=== PATIENT | female | born 1985 | race American Indian/Alaskan Native ===

== ENCOUNTER 2018-02-06 10:02 | Outpatient (CLI) | payer OTHER | END 2018-02-06 13:30 | disposition home or self-care (01) | LOC: LAB 10:02 → TRG 13:09 → LAB 13:30 | PROVIDERS: ATTEND Obstetrics & Gynecology | DX: O36.0131 Maternal care for anti-D [Rh] antibodies, third trimester, fetus 1 (principal); Z3A.28 28 weeks gestation of pregnancy | CPT/HCPCS: 86850; 86900; 86901; 96372; J2790 ==